=== PATIENT | female | born 1965 | race Two or more races ===

== ENCOUNTER 2019-05-03 14:54 | Emergency (ER) | payer MEDICAID, OTHER ==
[~2019-05-03] VITALS: Ht 162.6 cm; Wt 63.5 kg
[2019-05-03] MEDS ORDERED: ONDANSETRON HCL 4 MG/2 ML VIAL IV ONE (15:45)
[2019-05-03 16:20] LABS: Alanine Aminotransferase 48 U/L (13-56); Albumin 3.3 g/dL (3.4-5.0); Anion Gap 9 (5-15); Aspartate Aminotransferase 22 U/L (15-37); BUN/Creatinine Ratio 20.5; Blood Urea Nitrogen 15 mg/dL (7-18); Calcium 8.6 mg/dL (8.5-10.1); Carbon Dioxide 26 mmol/L (21-32); Chloride 102 mmol/L (98-107); GFR African American 108 mL/min; GFR Non-African American 89 mL/min; Glucose 318 mg/dL (74-106); Magnesium 1.8 mg/dL (1.6-2.6); Sodium 137 mmol/L (136-145)
[2019-05-03 16:25] LABS: Alkaline Phosphatase 80 U/L (45-117); Bilirubin, Total 0.9 mg/dL (0.2-1.0); Total Protein 7.6 g/dL (6.4-8.2)
[2019-05-03 16:30] LABS: Basophils # (auto) 0 uL; Basophils % (auto) 0.8 % (0.0-2.0); Eosinophils # (auto) 0 uL; Eosinophils % (auto) 0.5 % (0.0-7.0); Hematocrit 44.2 % (36.0-46.0); Lymphocytes # (auto) 1.6 uL; Lymphocytes % (auto) 29.1 % (10.0-50.0); Mean Corpuscular Hgb Conc. 33.9 g/dL (32.0-36.0); Mean Corpuscular Volume 85.5 fL (80.0-100.0); Monocytes # (auto) 0.3 uL; Neutrophils # (auto) 3.5 uL; Neutrophils % (auto) 63.6 % (37.0-80.0); Nucleated Red Blood Cells % 0.1 %; Platelet Count (auto) 298 10^3/uL (140-450); Red Blood Cells 5.17 10^6/uL (4.0-5.20); Red Cell Distribution Width 13.9 % (11.8-14.3); White Blood Cell 5.5 10^3/uL (4.4-10.8)
[2019-05-03] MEDS ORDERED: ONDANSETRON HCL 4 MG/2 ML VIAL IM ONE (16:45)
[2019-05-03] MEDS ORDERED: HYDROcodone-ACET 5/325MG TAB PO ONE (17:30)
[2019-05-03] MEDS ORDERED: SODIUM CHLORIDE 0.9% 1,000 ML IV ONE (17:59)
[2019-05-03 18:30] LABS: Urine Bacteria NONE SEEN /hpf (None Seen); Urine Blood Negative /uL (Negative); Urine Mucus FEW (None Seen); Urine Specific Gravity 1.041 (1.001-1.035); Urine WBC 3 /hpf (0 - 5)
[2019-05-03 19:28] VITALS: BP 112/77
== END 2019-05-03 19:52 | disposition home or self-care (01) ==
LOC: ER 15:02
DX: J32.9 Chronic sinusitis, unspecified (principal); R73.9 Hyperglycemia, unspecified; R11.2 Nausea with vomiting, unspecified; Z90.49 Acquired absence of other specified parts of digestive tract
CPT/HCPCS: 36415; 70450; 80053; 81001; 83735; 84484; 85025; 93005; 96360; 96372; 99284; J2405; J7030

== ENCOUNTER 2019-05-19 19:20 | Emergency (ER) | payer MEDICAID ==
[~2019-05-19] VITALS: Ht 154.9 cm; Wt 72.6 kg
[2019-05-19 19:30] VITALS: BP 130/90
[2019-05-19] MEDS ORDERED: SODIUM CHLORIDE 0.9% 1,000 ML IV ONE (19:45)
[2019-05-19] MEDS ORDERED: InsuLIN REG 1unit/0.01ml Soln (100units/ml) IV ONE (19:45)
== END 2019-05-19 21:13 | disposition home or self-care (01) ==
LOC: ER 19:20 → EDBD 19:20 → ER 21:10
DX: E11.65 Type 2 diabetes mellitus with hyperglycemia (principal); F41.9 Anxiety disorder, unspecified; I10 Essential (primary) hypertension; Z90.49 Acquired absence of other specified parts of digestive tract
CPT/HCPCS: 82962; 93005; 96360; 99283; J7030

== ENCOUNTER 2022-03-03 07:35 | Emergency (ER) | payer MEDICAID ==
[~2022-03-03] VITALS: Ht 154.9 cm; Wt 72.6 kg
[2022-03-03 09:32] VITALS: BP 129/73
[2022-03-03] MEDS ORDERED: IBUP400T23 PO (10:59)
[2022-03-03] MEDS ORDERED: IBUPROFEN 600 MG TAB PO ONE (11:00)
== END 2022-03-03 11:23 | disposition home or self-care (01) ==
LOC: ER 07:35
DX: S39.012A Strain of muscle, fascia and tendon of lower back, initial encounter (principal); I10 Essential (primary) hypertension; E11.9 Type 2 diabetes mellitus without complications; Z90.49 Acquired absence of other specified parts of digestive tract; Z79.1 Long term (current) use of non-steroidal anti-inflammatories (NSAID); Y92.89 Other specified places as the place of occurrence of the external cause; Y99.8 Other external cause status
CPT/HCPCS: 72100

== ENCOUNTER 2022-12-05 15:50 | Emergency (ER) | payer MEDICAID ==
[~2022-12-05] VITALS: Ht 147.3 cm; Wt 72.7 kg
[~2022-12-05 15:50] MED LIST: IBUP400T23 PO
[2022-12-05] MEDS ORDERED: ONDANSETRON HCL 4 MG/2 ML VIAL IV ONE (16:30)
[2022-12-05] MEDS ORDERED: PANTOPRAZOLE 40 MG/10 ML VIAL INJ IV ONE (16:30)
[2022-12-05 16:56] LABS: Basophils # (auto) 0.1 10 ^3/uL (0-0.2); Basophils % (auto) 0.6 % (0.0-2.0); Eosinophils # (auto) 0.1 10 ^3/uL (0-0.8); Eosinophils % (auto) 1.3 % (0.0-7.0); Hematocrit 43.9 % (36.0-46.0); Hemoglobin 14.8 g/dL (12.2-16.2); Lymphocytes # (auto) 3.6 10 ^3/uL (0.4-5.4); Lymphocytes % (auto) 42.8 % (10.0-50.0); Mean Corpuscular Hemoglobin 28.7 pg (28.0-32.0); Mean Corpuscular Hgb Conc. 33.7 g/dL (32.0-36.0); Monocytes # (auto) 0.5 10 ^3/uL (0-1.3); Neutrophils # (auto) 4.1 10 ^3/uL (1.6-8.6); Neutrophils % (auto) 49.3 % (37.0-80.0); Nucleated Red Blood Cells % 0.1 %; Red Blood Cells 5.17 10^6/uL (4.0-5.20); Red Cell Distribution Width 14.9 % (11.8-14.3); White Blood Cell 8.4 10^3/uL (4.4-10.8)
[2022-12-05 17:10] LABS: Albumin 3.9 g/dL (3.4-5.0); BUN/Creatinine Ratio 16.2; Calcium 9.2 mg/dL (8.5-10.1); Potassium 3.8 mmol/L (3.5-5.1)
[2022-12-05 17:13] LABS: Bilirubin, Total 0.9 mg/dL (0.2-1.0); Total Protein 7.6 g/dL (6.4-8.2)
[2022-12-05] MEDS ORDERED: PANTOPRAZOLE 40 MG TAB PO ONE (21:15)
[2022-12-05] MEDS ORDERED: ONDANSETRON ODT 4 MG TAB PO ONE (21:15)
[2022-12-05] MEDS ORDERED: PANT40TA2 PO (21:17)
[2022-12-05] MEDS ORDERED: ONDA-144 PO (21:17)
[2022-12-05 22:09] VITALS: BP 142/84
== END 2022-12-05 22:21 | disposition home or self-care (01) ==
LOC: ER 15:51
DX: R11.2 Nausea with vomiting, unspecified (principal); T88.1XXA Other complications following immunization, not elsewhere classified, initial encounter; E11.9 Type 2 diabetes mellitus without complications; I10 Essential (primary) hypertension; Z90.49 Acquired absence of other specified parts of digestive tract
CPT/HCPCS: 36415; 74176; 80053; 82010; 82962; 85025; 96374; 96375; 99285; C9113; J2405; Q0162